=== PATIENT | female | born 1975 | race Caucasian/White ===

== ENCOUNTER 2018-02-09 02:32 | Emergency (ER) | payer MEDICAID ==
[~2018-02-09] VITALS: Ht 160 cm; Wt 56.7 kg
[2018-02-09 02:26] VITALS: BP 161/119
[~2018-02-09 02:32] MED LIST: KEFLEX500 MG ORAL
[2018-02-09] MEDS ORDERED: AMOXICILLIN500 MG ORAL (02:43)
--- NOTE | 2018-02-09 02:44 | Emergency Room Report ---
History of Present Illness General Chief Complaint: Toothache Source: Patient Present Illness HPI This is a 42-year-old female who presents with chief complaint of dental pain. Onset about an hour ago. She said that she flipped off a piece of tooth his was loose and then developed severe pain. Pain is 10 out of 10 patient took ibuprofen without relief. No nausea no vomiting. Never had this pain before. No swelling. She is currently on methadone clinics. Denies any other complaint. Allergies: Coded Allergies: CODEINE (Verified Allergy, Mild, 04/12/13) Patient History Past Medical History: see triage record, old chart reviewed Pertinent Family History: none Social History: Reports: smoking Last Menstrual Period: 3 weeks ago Now: No Immunizations: other Reviewed Nursing Documentation: PMH: Agreed; PSxH: Agreed Nursing Documentation-PMH Hx Asthma: Yes Review of Systems Eye: Denies: eye pain, blurred vision ENT: Reports: mouth pain; Denies: ear pain, nose congestion, throat swelling Respiratory: Denies: cough, shortness of breath Cardiovascular: Denies: chest pain, palpitations Gastrointestinal: Denies: abdominal pain, diarrhea, nausea, vomiting Musculoskeletal: Denies: back pain, joint pain Skin: Denies: rash Neurological: Denies: headache, numbness Endocrine: Denies: increased thirst, increased urine Hematologic/Lymphatic: Denies: easy bruising All Other Systems: negative except mentioned in HPI Physical Exam Vital Signs Date Time Temp Pulse Resp B/P (MAP) Pulse Ox O2 Delivery O2 Flow Rate FiO2 02/09/18 02:26 97.0 111 18 161/119 98 Room Air 97.0 vitals with tachycardia and high blood pressure Sp02 EP Interpretation: reviewed, normal General Appearance: well appearing, no apparent distress, alert Head: normocephalic, atraumatic Eyes: bilateral eye PERRL, bilateral eye EOMI ENT: hearing grossly normal, other - Poor dentition. The left upper lateral incisor is decayed to the nub. There is no bleeding. No abscess noted. Neck: full range of motion, supple, no meningismus Respiratory: chest non-tender, lungs clear, normal breath sounds Cardiovascular #1: regular rate, rhythm, no murmur Gastrointestinal: normal bowel sounds, non tender, no mass, no organomegaly, no bruit, non-distended Musculoskeletal: back normal, gait/station normal, normal range of motion Psychiatric: mood/affect normal Skin: warm/dry Medical Decision Making Diagnostic Impression: Primary Impression: Toothache ER Course Patient with a dental abscess/toothache. She will need a root canal. No evidence of fracture. No evidence of bleeding. Nothing to I and D. I attempted do a dental block but patient refused. She said she need to be put under for this. I told her that it is not indicated. Last Vital Signs Date Time Temp Pulse Resp B/P (MAP) Pulse Ox O2 Delivery O2 Flow Rate FiO2 02/09/18 02:26 97.0 111 18 161/119 98 Room Air 97.0 Status: unchanged Disposition: HOME, SELF-CARE Condition: Stable Scripts Amoxicillin* (AMOXIL*) 500 Mg Capsule 500 MG ORAL THREE TIMES A DAY, #21 CAP Prov: SAM PATE M.D. 02/09/18 Patient Instructions: Dental Pain Additional Instructions: Follow-up with dentist STAN. Return if symptom worsen. SAM PATE M.D. Feb 09, 2018 02:44
[2018-02-09 02:54] VITALS: BP 161/119
== END 2018-02-09 03:47 | disposition home or self-care (01) ==
LOC: EDBD 02:32 → EMR 02:48
DX: K08.89 Other specified disorders of teeth and supporting structures (principal); J45.909 Unspecified asthma, uncomplicated
CPT/HCPCS: 99283